=== PATIENT | female | born 1950 | race Caucasian/White ===

== ENCOUNTER 2018-05-17 05:29 | Day surgery (SDC) | payer OTHER, MEDICAID ==
[2018-05-17] MEDS ORDERED: PROPARACAINE 0.5% OPHTH SOL 15 ML BTTL ONE (05:56)
[2018-05-17] MEDS ORDERED: TROP 1%/CYCLOPEN 1%/PHENYL 2% DROPS ONE (05:56)
[2018-05-17] MEDS ORDERED: MIDAZOLAM INJ 2 MG/2 ML VIAL ONE (06:37)
[2018-05-17] MEDS ORDERED: LIDOCAINE 1% MPF 5 ML VIAL INJ ONE (07:05)
[2018-05-17] MEDS ORDERED: DEXAMETHASONE 0.1% OPHTH SOL 1 DROP LEFT_EYE ONE ×2 (08:07→08:19)
[2018-05-17] MEDS ORDERED: BRIMONIDINE 0.2% OPHTH DROPS LEFT_EYE ONE ×2 (08:08→08:19)
[2018-05-17] MEDS ORDERED: TOBRAMYCIN SULF 0.3 % OPHT SOL 1 DROP LEFT_EYE ONE ×2 (08:08→08:19)
== END 2018-05-17 08:56 | disposition home or self-care (01) ==
LOC: AMB 05:29
PROVIDERS: ATTEND Ophthalmology
DX: H25.12 Age-related nuclear cataract, left eye (principal); E11.36 Type 2 diabetes mellitus with diabetic cataract
CPT/HCPCS: 00142; 66984; J2250

== ENCOUNTER 2018-05-31 05:30 | Day surgery (SDC) | payer OTHER, MEDICAID ==
[2018-05-31] MEDS ORDERED: PROPARACAINE 0.5% OPHTH SOL 15 ML BTTL ONE (05:52)
[2018-05-31] MEDS ORDERED: TROP 1%/CYCLOPEN 1%/PHENYL 2% DROPS ONE (05:52)
[2018-05-31] MEDS ORDERED: MIDAZOLAM INJ 2 MG/2 ML VIAL ONE (07:57)
[2018-05-31] MEDS ORDERED: LIDOCAINE 1% MPF 5 ML VIAL INJ ONE (08:02)
[2018-05-31] MEDS ORDERED: DEXAMETHASONE 0.1% OPHTH SOL 1 DROP RIGHT_EYE ONE ×2 (08:03→08:16)
[2018-05-31] MEDS ORDERED: TOBRAMYCIN SULF 0.3 % OPHT SOL 1 DROP RIGHT_EYE ONE ×2 (08:03→08:16)
[2018-05-31] MEDS ORDERED: BRIMONIDINE 0.2% OPHTH DROPS RIGHT_EYE ONE ×2 (08:03→08:16)
== END 2018-05-31 08:57 | disposition home or self-care (01) ==
LOC: AMB 05:30
PROVIDERS: ATTEND Ophthalmology
DX: H25.11 Age-related nuclear cataract, right eye (principal); E11.36 Type 2 diabetes mellitus with diabetic cataract; E66.9 Obesity, unspecified; Z79.899 Other long term (current) drug therapy
CPT/HCPCS: 00142; 36416; 66984; 82948; J2250

== ENCOUNTER → 2019-06-14 | Outpatient (CLI) | payer OTHER, MEDICAID ==
--- NOTE | 2019-06-15 17:02 | US ---
US THYROID CLINICAL STATEMENT: NONTOXIC GOITER. . No palpable mass. No previous thyroid surgery or medical therapy. COMPARISON: None TECHNIQUE: Transcutaneous scanning, grayscale and Doppler modes. FINDINGS: Size right thyroid lobe: 3.7 x 1.5 x 1.1 cm Size left thyroid lobe: 3.9 x 1.5 x 1.0 cm Size isthmus: 0.4 cm Estimated total number of nodules greater than or equal to 1 cm: 1. No distinct cyst, large calcifications, or parenchymal edema. Nodule 1: Size: 1.3 x 0.6 x 0.4 cm Location: Right Upper Composition: solid or almost completely solid: 2 points Echogenicity: isoechoic: 1 point Shape: wider than tall: 0 points Margins: smooth: 0 points Echogenic foci: none: 0 points ACR Total Points: 3; ACR TI-RADS risk category: TR3 - mildly suspicious nodule. Soft tissue around the thyroid gland show no dominant solid mass or distinct cyst. No parenchymal edema or large calcifications. No overlying skin changes. IMPRESSION: 1. Nodule 1: ACR TI-RADS 2017 Category TR3. Recommend: Follow-up ultrasound in 1 year.. Recommendations based upon [facility] Best [employer] recommendations and ACR TI-RADS 2017 guidelines. Please see below*. 2. Soft tissue around the thyroid gland is unremarkable. *ACR TI-RADS 2017 Recommendations for imaging follow-up of nodules: TR1: No FNA or follow up TR2: No FNA or follow up TR3: FNA if >/= 2.5 cm, follow up if 1.5 - 2.4 cm in 1, 3, and 5 years TR4: FNA if >/= 1.5 cm, follow up if 1.0 - 1.4 cm in 1, 2, 3, and 5 years TR5: FNA if >/= 1.0 cm, follow up if 0.5 - 0.9 cm every year for 5 years ACR TI-RADS recommends that no more than two nodules with the highest ACR TI-RADS total point should be biopsied and no more than four nodules should be followed. These recommendations do not apply to patients with increased risk for thyroid cancer or patients with symptomatic thyroid disease. Electronically signed by: Juan Miguel Gray MD 06/15/2019 5:01 PM CDT
== END ==
LOC: US 15:00
PROVIDERS: ATTEND Nurse Practitioner Family
DX: E04.9 Nontoxic goiter, unspecified (principal)

== ENCOUNTER 2019-10-15 16:34 | Emergency (ER) | payer MEDICARE, MEDICAID ==
[2019-10-15] MEDS ORDERED: HYDROmorphone HCL INJ 2 MG/ML VIAL IM ONE (16:55)
[2019-10-15] MEDS ORDERED: KETOROLAC TROMETHAMINE INJ 30 MG/ML VIAL IM ONE (16:55)
--- NOTE | 2019-10-15 17:08 | ED.PDOC ---
History of Present Illness - General Chief Complaint: General Stated Complaint: left arm and hand pain Time Seen by Provider: 10/15/19 16:49 Source: patient, RN notes reviewed, Vital Signs reviewed Exam Limitations: no limitations - History of Present Illness Initial Comments: Pt is a 69 yo female who presents to ED with left arm and hand pain. States she fell down stairs in July 2019 and had multiple left upper extremity fractures to the elbow and forearm areas. Has had multiple surgeries on LUE over the past 2 months, but continues to have chronic pain. States she is currently taking neurontin, but it is not controlling her pain the past few days. States she is being seen by physical therapy as well. Denies any new injury or trauma. Denies CP, SOB, palpitations, fever, NVD or abdominal pain. Improving Factors: nothing Worsening Factors: movement, other - palpation of the LUE Allergies/Adverse Reactions: Allergies NO KNOWN ALLERGY Allergy (Verified 10/15/19 17:04) Home Medications: Ambulatory Orders Acetaminophen W/ Codeine [Tylenol W/ CODEINE #3] 1 tablet PO Q6H PRN #14 10/15/19 Gabapentin 300 mg PO BID 10/15/19 Metformin HCl [Metformin Hydrochloride E] 500 mg PO BID 10/15/19 Quetiapine Fumarate [Seroquel] 300 mg PO QPM 10/15/19 Zolpidem Tartrate [Ambien] 5 mg PO QPM 10/15/19 Review of Systems - Review of Systems Constitutional: Denies: chills, fever, weakness EENTM: Denies: nose congestion, throat pain Respiratory: Denies: cough, short of breath, wheezing Cardiology: Denies: chest pain, edema, palpitations, syncope Gastrointestinal/Abdominal: Denies: abdominal pain, diarrhea, nausea, vomiting Musculoskeletal: States: other - Left arm pain Neurological: Denies: headache, paresthesia, tingling, weakness All other Systems: Reviewed and Negative Past Medical History (General) - Patient Medical History Hx Congestive Heart Failure: No Hx Diabetes: No Hx MRSA: No Family Medical History - Family History Mother Family History: No Known Physical Exam - Physical Exam General Appearance: Alert, Other - Mild distress, holding left forearm. Neck: non-tender, full range of motion, supple, other - No C, T, L spine tenderness Respiratory: chest non-tender, lungs clear, normal breath sounds, no respiratory distress Cardiovascular/Chest: no edema, no murmur, tachycardia Peripheral Pulses: radial,left: 2+ Gastrointestinal/Abdominal: non tender, soft, no pulsatile mass Back Exam: normal inspection, no CVA tenderness, no vertebral tenderness Extremity: other - LUE has well healed surgical incisions. Sensation intact to light touch. Humerus, elbow, forearm and hand are TTP. There is no edema, erythema or warmth Neurologic: alert, normal mood/affect Skin Exam: normal color, warm/dry Progress - Progress Progress: 10/15/19 17:31 Pt presents with left arm pain. She reports comminuted fractures of upper and lower arm s/p ORIF with strength and nerve palsies and is currently undergoing physical therapy to regain function. There are no signs of DVT or infection at this time. Pt in pain initially and tachycardia with pulse 136. Treated with analgesia IM and reassessed and pulse improved to 115. Will get labs and await imaging. Pain is improved post initial pain meds. 10/15/19 18:22 Discussed witth patient lab and imaging results. Pt feels improved. Pulse 108. Rates pain at a 3 now. Imaging shows intact hardware and labs show mild leukocytosis and mild hypokalemia. Pt feels comfortable going home and requests pain medicine she can take until she sees her surgeon on Thursday. Will treat with T#3 and continue Gabapentin. I have instructed her to return for increased pain, cold sensation, edema or other concerns. - Results/Orders Results/Orders: EXAM DESCRIPTION: X-RAY Forearm, left; 2 views CLINICAL HISTORY: 69 years Female, pain COMPARISON: April 04, 2010. FINDINGS: Negative for acute fracture or dislocation. Postsurgical changes in the proximal and distal radius. Degenerative changes and osteopenia of the carpal bones. IMPRESSION: No acute findings. EXAM DESCRIPTION: X-RAY Elbow, left 2 Views CLINICAL HISTORY: 69 years Female, pain COMPARISON: April 04, 2010. FINDINGS: No acute fracture or dislocation. Postsurgical changes in the proximal and distal radius. Soft tissues unremarkable. IMPRESSION: No acute findings. 10/15/19 17:00 EKG .ONCE Laboratory Results - last 24 hr 10/15/19 10/15/19 10/15/19 17:52 17:52 17:52 WBC 11.3 H RBC 4.88 Hgb 13.2 Hct 40.3 MCV 82.5 MCH 27.0 MCHC 32.8 L RDW 15.1 H Plt Count 299 MPV 7.8 Absolute Neuts (auto) 9.50 H Absolute Lymphs (auto) 1.20 Absolute Monos (auto) 0.50 Absolute Eos (auto) 0.10 Absolute Basos (auto) 0.10 Neutrophils % 83.8 H Lymphocytes % 10.3 L Monocytes % 4.7 Eosinophils % 0.6 L Basophils % 0.6 Sodium 135 Potassium 3.0 L Chloride 103 Carbon Dioxide 19 L Anion Gap 16.0 BUN 13 Creatinine 0.86 BUN/Creatinine Ratio 15.1 POC Glucose 185 H Random Glucose 167 H Serum Osmolality 274.0 L Calcium 8.9 Total Bilirubin 0.5 AST 19 ALT 10 Alkaline Phosphatase 69 Troponin I Serum Total Protein 7.1 Albumin 3.5 Globulin 3.6 H Albumin/Globulin Ratio 1.0 L 10/15/19 17:52 WBC RBC Hgb Hct MCV MCH MCHC RDW Plt Count MPV Absolute Neuts (auto) Absolute Lymphs (auto) Absolute Monos (auto) Absolute Eos (auto) Absolute Basos (auto) Neutrophils % Lymphocytes % Monocytes % Eosinophils % Basophils % Sodium Potassium Chloride Carbon Dioxide Anion Gap BUN Creatinine BUN/Creatinine Ratio POC Glucose Random Glucose Serum Osmolality Calcium Total Bilirubin AST ALT Alkaline Phosphatase Troponin I 0.02 Serum Total Protein Albumin Globulin Albumin/Globulin Ratio - EKG/XRAY/CT EKG: Tachy, no ST T wave changes Comments: sinus tachy, rate 135, normal intervals Departure - Departure Clinical Impression: Post-operative pain Chronic pain Qualifiers: Chronic pain type: other chronic pain Qualified Code(s): G89.29 - Other chronic pain Time of Disposition: 18:27 Disposition: Discharge to Home or Self Care Condition: Good Departure Forms: ED Discharge - Pt. Copy, Patient Portal Self Enrollment Instructions: Upper Extremity Exercises Seated for the Elbow and Wrist Activity: increase activity as tolerated Referrals: TAMMI SANTIAGO [Primary Care Provider] - 1-2 Weeks Prescriptions: Acetaminophen W/ Codeine [Tylenol W/ CODEINE #3] 1 tablet PO Q6H PRN #14 PRN Reason: Pain Home Medications: Ambulatory Orders Acetaminophen W/ Codeine [Tylenol W/ CODEINE #3] 1 tablet PO Q6H PRN #14 10/15/19 Gabapentin 300 mg PO BID 10/15/19 Metformin HCl [Metformin Hydrochloride E] 500 mg PO BID 10/15/19 Quetiapine Fumarate [Seroquel] 300 mg PO QPM 10/15/19 Zolpidem Tartrate [Ambien] 5 mg PO QPM 10/15/19 Additional Instructions: Follow up with your surgeon in 3-4 days for recheck.
[2019-10-15] MEDS ORDERED: SODIUM CHLORIDE 0.9% 1000ML 1,000 ML IVS ONE (17:23)
--- NOTE | 2019-10-15 17:31 | RAD ---
EXAM DESCRIPTION: X-RAY Elbow, left 2 Views CLINICAL HISTORY: 69 years Female, pain COMPARISON: April 04, 2010. FINDINGS: No acute fracture or dislocation. Postsurgical changes in the proximal and distal radius. Soft tissues unremarkable. IMPRESSION: No acute findings. Electronically signed by: Davis Norris MD 10/15/2019 5:30 PM [facility]
--- NOTE | 2019-10-15 17:34 | RAD ---
EXAM DESCRIPTION: X-RAY Forearm, left; 2 views CLINICAL HISTORY: 69 years Female, pain COMPARISON: April 04, 2010. FINDINGS: Negative for acute fracture or dislocation. Postsurgical changes in the proximal and distal radius. Degenerative changes and osteopenia of the carpal bones. IMPRESSION: No acute findings. Electronically signed by: Davis Norris MD 10/15/2019 5:32 PM [employer]
[2019-10-15 18:50] VITALS: BP 120/83; TEMP 97.8; O2SAT 95
== END 2019-10-15 18:40 | disposition home or self-care (01) ==
LOC: ER 16:34
DX: G89.18 Other acute postprocedural pain (principal); G89.29 Other chronic pain; M79.632 Pain in left forearm; M85.80 Other specified disorders of bone density and structure, unspecified site; R00.0 Tachycardia, unspecified; Z79.84 Long term (current) use of oral hypoglycemic drugs; Z79.899 Other long term (current) drug therapy
CPT/HCPCS: 36415; 73070; 73090; 80053; 82948; 84484; 85025; 93005; J1170; J1885; J7030

== ENCOUNTER 2019-10-18 13:05 | Emergency (ER) | payer MEDICARE, MEDICAID ==
[2019-10-18 13:32] VITALS: TEMP 97.4; O2SAT 95
--- NOTE | 2019-10-18 13:52 | ED.PDOC ---
History of Present Illness - General Chief Complaint: Allergic Reaction Stated Complaint: LUE pain and allergic rxn Time Seen by Provider: 10/18/19 13:27 Source: patient, RN notes reviewed, Vital Signs reviewed, RN/MD - Dr. Chambers Exam Limitations: no limitations - History of Present Illness Initial Comments: Patient is a 69-year-old female who presents with complaints of left upper extremity pain, specifically in her hand, and an allergic reaction from the Tylenol 3's that she received a couple of days ago. Patient suffered a nerve injury to her left upper extremity while undergoing operative repair of an elbow fracture back in July 2019 and has had pain in the extremity since that time. Patient states that she started having allergic reaction a couple of days ago to the Tylenol 3 she had been prescribed. Patient states the pain is 6 out of 10, burning, itching, continuous and worsening. It is located in her left hand. Nothing makes it better or worse. Occurred: other - Ongoing nerve pain since July 2019. It worsened in the last couple of days as the Tylenol 3 is causing allergic reaction. Pain - Upper Extremity: moderate: Wrist, left Method of Injury: other - See HPI Improving Factors: nothing Worsening Factors: nothing Allergies/Adverse Reactions: Allergies NO KNOWN ALLERGY Allergy (Verified 10/15/19 17:04) Home Medications: Ambulatory Orders Acetaminophen W/ Codeine [Tylenol W/ CODEINE #3] 1 tablet PO Q6H PRN #14 10/15/19 Gabapentin 300 mg PO BID 10/15/19 Metformin HCl [Metformin Hydrochloride E] 500 mg PO BID 10/15/19 Quetiapine Fumarate [Seroquel] 300 mg PO QPM 10/15/19 Zolpidem Tartrate [Ambien] 5 mg PO QPM 10/15/19 Review of Systems - Review of Systems Constitutional: States: no symptoms reported, see HPI EENTM: States: no symptoms reported Respiratory: States: no symptoms reported Cardiology: States: no symptoms reported Gastrointestinal/Abdominal: States: no symptoms reported Genitourinary: States: no symptoms reported Musculoskeletal: States: see HPI, joint pain. Denies: back pain, joint swelling, muscle pain, muscle stiffness Skin: States: see HPI. Denies: change in color, rash Neurological: States: see HPI, pre-existing deficit Endocrine: States: no symptoms reported Hematologic/Lymphatic: States: no symptoms reported Past Medical History (General) - Patient Medical History Hx Stroke: No Hx of COPD: No Hx Cardiac Disorders: No Hx Congestive Heart Failure: No Hx Hypertension: No Hx Diabetes: No Hx Cancer: No Hx MRSA: No - Vaccination History Hx Tetanus, Diphtheria Vaccination: No Hx Influenza Vaccination: Yes Hx Pneumococcal Vaccination: No - Social History Hx Tobacco Use: No Hx Alcohol Use: No Hx Substance Use: No Hx Substance Use Treatment: No Hx Depression: Yes - Female History Patient : No Family Medical History - Family History Mother Family History: No Known Physical Exam - Physical Exam General Appearance: Alert, Anxious, Restless, Well Developed, Well Groomed, Well Hydrated, Well Nourished Eyes, Ears, Nose, Throat Exam: PERRL/EOMI, normal ENT inspection, pharynx normal Neck: non-tender, full range of motion, supple Cardiovascular/Respiratory: regular rate, rhythm, no M/R/G, normal peripheral pulses, no JVD, normal breath sounds, no respiratory distress Abdominal Exam: non-tender, no organomegaly Back Exam: normal inspection, no CVA tenderness, no vertebral tenderness Shoulder Exam: normal inspection, non-tender, no evidence of injury Elbow/Forearm Exam: non-tender, limited ROM Wrist Exam: limited ROM - Patient's left wrist is held in complete flexion as she has no extensor capability after the nerve transection on her elbow. She does have well-healed surgical scars on her elbow and forearm. Hand Exam: limited ROM - Patient's hand is held in contracture she has no extension ability of her muscles after her surgery. There is full range of motion passively. Neuro/Tendon: motor deficit, sensory deficit Mental Status: alert, oriented x 3, depressed affect Skin Exam: normal color, warm/dry Progress - Progress Progress: Differential diagnosis: Medication reaction, allergic reaction, drug-seeking behavior, neuropathic pain among others. 10/18/19 13:57 Patient has been out of her gabapentin for a few days. I do not see any actual skin reaction consistent with an allergic reaction. I did call her PCP, Dr. Chambers, and we had a good conversation regarding her care and treatment. I did inform Dr. Chambers that she was out of her gabapentin and he stated that he will call her in a prescription right now. Additionally, patient was prescribed tramadol yesterday by Dr. Chambers which she has not picked up. Dr. Chambers recommends that for further narcotic refills that she go to her surgeon in [place]. I have discussed this with the patient and she voices understanding and agreement with the plan of care. Patient wishes discharge at this time so she can go lease picker her gabapentin and tramadol. Kirby Dior M.D. #[id number] Departure - Departure Clinical Impression: Medication refill Allergic reaction caused by a drug Qualifiers: Encounter type: initial encounter Qualified Code(s): T78.40XA - Allergy, unspecified, initial encounter Time of Disposition: 13:59 Disposition: Discharge to Home or Self Care Condition: Good Departure Forms: ED Discharge - Pt. Copy, Patient Portal Self Enrollment Instructions: Skin Rash (DC), Adverse Drug Reactions, Adult (DC) Referrals: TAMMI CHAMBERS [Primary Care Provider] - 1-2 Weeks Home Medications: Ambulatory Orders Acetaminophen W/ Codeine [Tylenol W/ CODEINE #3] 1 tablet PO Q6H PRN #14 10/15/19 Gabapentin 300 mg PO BID 10/15/19 Metformin HCl [Metformin Hydrochloride E] 500 mg PO BID 10/15/19 Quetiapine Fumarate [Seroquel] 300 mg PO QPM 10/15/19 Zolpidem Tartrate [Ambien] 5 mg PO QPM 10/15/19
[2019-10-18 14:09] VITALS: BP 145/89
== END 2019-10-18 14:05 | disposition home or self-care (01) ==
LOC: ER 13:05
DX: T78.40XA Allergy, unspecified, initial encounter (principal); T40.2X5A Adverse effect of other opioids, initial encounter; M79.642 Pain in left hand; F32.9 Major depressive disorder, single episode, unspecified; Z76.0 Encounter for issue of repeat prescription; Z98.890 Other specified postprocedural states; Z79.899 Other long term (current) drug therapy; Z87.828 Personal history of other (healed) physical injury and trauma

== ENCOUNTER → 2019-10-21 | Outpatient (CLI) | payer MEDICARE, MEDICAID ==
--- NOTE | 2019-10-24 08:38 | MRI ---
EXAM DESCRIPTION: Cervical Spine: MRI. CLINICAL HISTORY: 69 years Female RADICULOPATHY COMPARISON: None. TECHNIQUE: Multiplanar, high-field MRI, multiple sequences, non-contrast Cervical spine. FINDINGS: C4-C5: Disc desiccation and disc space loss. Anterior bulging. Small right uncinate spur. Posterior midline disc bulge impressing on the cord with thickening of the posterior ligaments and mild central canal stenosis. Moderate to severe narrowing right neural foramen with left neuroforamen patent. Bilateral facet joints unremarkable. C5-C6: Disc desiccation with anterior bulging. Posterior midline 4 mm protrusion impressing on the cord and thickening of the posterior flavum ligaments with mild to moderate canal stenosis. Hyperintense T2 weighted annular fissure in the protruding segment. No cord compression. Bilateral uncinate spurs and mild to moderate neural foraminal narrowing. Facet joints are unremarkable. C6-C7: Disc desiccation but no disc space loss. Posterior midline bulge. Posterior flavum ligament thickening. Borderline mild central canal stenosis. Bilateral neural foramina are patent. Facet joints are unremarkable. Normal signal in the C2-3 disc C3-4 disc, C7-T1 disc, and T1-T2 disc with no bulging. Disc spaces preserved. Canal and neural foramina are patent. Perineural cyst in the right T1-T2 neural foramen. Facet joints are unremarkable. Spinal alignment anatomic. No cord compression or cord edema. Atlantoaxial joint negative. Base of the cerebellar tonsils is above the foramen magnum. Paravertebral soft tissues negative. Vertebral bodies are not compressed at any level. Normal marrow signal in the remaining vertebral bodies and the posterior elements. IMPRESSION: 1. Multiple levels of bulging discs and posterior ligament thickening contributing to canal narrowing. 2. Posterior midline protrusion of the C5-C6 disc with annular fissure, impressing on the cord, and posterior ligament thickening impressing on the cord with mild to moderate central canal stenosis. No significant narrowing of the bilateral neural foramina. 3. posterior midline bulge of the C4-C5 disc contributing to mild central canal stenosis. Right uncinate spur protruding to severe right neural foraminal stenosis. Correlate for right C5 radiculopathy. Electronically signed by: Juan Miguel Gray MD 10/24/2019 8:36 AM [employer]
== END ==
LOC: MRI 13:00
PROVIDERS: ATTEND Orthopaedic Surgery
DX: M54.12 Radiculopathy, cervical region (principal); M50.921 Unspecified cervical disc disorder at C4-C5 level; M50.222 Other cervical disc displacement at C5-C6 level; M25.78 Osteophyte, vertebrae; M48.02 Spinal stenosis, cervical region

== ENCOUNTER → 2020-10-12 | Outpatient (CLI) | payer MEDICARE, MEDICAID ==
--- NOTE | 2020-10-12 22:31 | US ---
US THYROID CLINICAL STATEMENT:70 years Female THYROID NODULE. COMPARISON: None TECHNIQUE: Transcutaneous scanning, grayscale and Doppler modes. FINDINGS: Size right thyroid lobe: 3.5 x 1.5 x 1.2 cm Size left thyroid lobe: 3.7 x 1.1 x 0.9 cm Size isthmus: 0.31 cm Estimated total number of nodules greater than or equal to 1 cm: None. Bilateral lobes and isthmus are heterogeneous. Nodule 1: Size: 0.5 x 0.5 x 0.3 cm Location: Right Upper Composition: spongiform: 0 points Echogenicity: hypoechoic: 2 points Shape: wider than tall: 0 points Margins: smooth: 0 points Echogenic foci: none: 0 points ACR Total Points: 2; ACR TI-RADS risk category: TR2 - nonsuspicious nodule. Remaining nodules on the right are smaller than nodule 1. No dominant solid mass, no distinct cyst, no parenchymal fluid collection, no large calcifications in the surrounding soft tissues. IMPRESSION: 1. Nodule 1: ACR TI-RADS 2017 Category TR2. Recommend: No further follow-up.. Recommendations based upon [employer] recommendations and ACR TI-RADS 2017 guidelines. Please see below*. 2. Soft tissue around the thyroid gland is unremarkable. *ACR TI-RADS 2017 Recommendations for imaging follow-up of nodules (baseline study): TR1: No FNA or follow up TR2: No FNA or follow up TR3: FNA if >/= 2.5 cm, follow up if 1.5 - 2.4 cm in 1, 3, and 5 years TR4: FNA if >/= 1.5 cm, follow up if 1.0 - 1.4 cm in 1, 2, 3, and 5 years TR5: FNA if >/= 1.0 cm, follow up if 0.5 - 0.9 cm every year for 5 years ACR TI-RADS recommends that no more than two nodules with the highest ACR TI-RADS total point should be biopsied and no more than four nodules should be followed. These recommendations do not apply to patients with increased risk for thyroid cancer or patients with symptomatic thyroid disease. Electronically signed by: Juan Miguel Gray MD 10/12/2020 10:29 PM [facility]
== END ==
LOC: US 13:57
PROVIDERS: ATTEND Nurse Practitioner Family
DX: E04.1 Nontoxic single thyroid nodule (principal)